=== PATIENT | female | born 1960 | race Caucasian/White ===

== ENCOUNTER 2018-07-26 06:47 | Day surgery (SDC) | payer OTHER ==
[~2018-07-26 06:47] MED LIST: CEFAZOLIN 2 Gram 2 GM/50 ML BAG IVPB ONE
[2018-07-26] MEDS ORDERED: DEXAMETHASONE 4 MG/ML 1ML VIAL IVP ONE ×2 (06:48)
[2018-07-26] MEDS ORDERED: MORPHINE SULFATE PF 10MG/10ML *10ML VIAL IV ONE (06:48)
[2018-07-26] MEDS ORDERED: MIDAZOLAM HCL 2MG/2ML VIAL IV ONE (06:48)
[2018-07-26] MEDS ORDERED: EPHEDRINE SULFATE 50 MG/ML ML IV ONE (06:48)
[2018-07-26] MEDS ORDERED: PROPOFOL 10 MG/ML VIAL IV ONE (06:48)
[2018-07-26] MEDS ORDERED: BUPIVACAINE 0.25% MPF 30ML VIAL IVP ONE (06:48)
[2018-07-26] MEDS ORDERED: DESFLURANE 240 ML BTL INH ONE (06:48)
[2018-07-26] MEDS ORDERED: BUPIVACAINE LIPOSOME/PF 133MG/10ML VIAL IV ONE (06:48)
[2018-07-26] MEDS ORDERED: GLYCOPYRROLATE 0.2 MG/ML ML IV ONE (06:48)
[2018-07-26] MEDS ORDERED: LIDOCAINE 2% MDV (20MG/ML) 20ML VIAL IV ONE (06:48)
[2018-07-26] MEDS ORDERED: FENTANYL PF 100MCG/2ML VIAL IV ONE (06:48)
[2018-07-26] MEDS ORDERED: ONDANSETRON HCL IV 4 MG/2 ML VIAL IVP ONE (06:48)
[2018-07-26] MEDS ORDERED: SCOPOLAMINE 1 PATCH TDSY TD ONE (08:32)
[2018-07-26] MEDS ORDERED: RINGERS SOLUTION,LACTATED 1,000 ML IV ONE ×2 (09:39→10:27)
[2018-07-26] MEDS ORDERED: METHYLPREDNISOLONE 40MG/VIAL IU ONE (10:40)
[2018-07-26] MEDS ORDERED: MORPHINE SULFATE 5 MG/ML VIAL IM ONE (10:40)
[2018-07-26] MEDS ORDERED: BUPIVACAINE 0.5% W/EPI MPF 30 ML VIAL SQ ONE (10:40)
--- NOTE | 2018-07-27 07:51 | Operative Note ---
DATE OF SURGERY: 07/26/2018 PREOPERATIVE DIAGNOSIS: Severe impingement, right shoulder. POSTOPERATIVE DIAGNOSES: 1. Small chronic tear of the rotator cuff. 2. Complex posterosuperior glenohumeral labral tear. 3. Profound right shoulder external impingement. 4. Arthrosis right distal clavicle. OPERATION: 1. Repair of a chronically torn rotator cuff tear. 2. Right shoulder arthroscopy with interarticular debridement. 3. Right shoulder open acromioplasty, CA ligament resection, subacromial bursectomy. 4. Right shoulder distal clavicle resection. STAFF SURGEON: Jairo Rice MD ANESTHESIA: General. PREPARATION: Chloraprep. INDIVIDUAL CONSIDERATIONS: None. PROCEDURE: The patient was taken to the operating room, placed supine on the operating room table. She had a successful induction with general anesthetic. She was then placed in a semi-seated beach chair position. Her right arm was prepped and draped in the usual fashion. Examination under anesthesia showed no instability. The patient had posterior portal identified for arthroscopy. Skin was infiltrated with 0.5% Marcaine with epinephrine prior. An 18-gauge spinal needle was easily placed in the joint, and the joint was inflated with normal saline. A stab wound was made, and a blunt- tipped trocar for the scope was easily placed in the joint. The joint was inflated with normal saline. An anterior accessory portal was then made just inferior to the intact long head of the biceps tendon in a retrograde fashion with a Wissinger yogi, and the joint was irrigated out. The glenohumeral joint was normal. She had a complex fraying of the superoposterior labrum, which was debrided with a shaver. Long head was intact. No loose bodies inferiorly. The undersurface of the rotator cuff of the supraspinatus looked contused but otherwise intact. The subscap tendon was normal. After irrigation, portals were closed with viviane. The patient had an anterior approach to the subacromial space and distal clavicle. Skin was again infiltrated with 0.5% Marcaine with epinephrine prior. Sharp dissection carried down through skin and subcutaneous tissue. Small veins were coagulated with a Bovie. An anterior deltoid interval was developed. Care was taken not to split the deltoid more than about 4 cm distal to the anterior tip of the acromion to prevent injury to the axillary nerve. Once in the subacromial space, there was a downsloping acromion and spurs at the AC joint. The deltoid was then taken subperiosteally off the anterior aspect of the acromion, over the top of the intact CA ligament, and off the anterior aspect of the degenerated distal clavicle. CA ligament was resected with a Bovie. Distal clavicle was resected with an oscillating saw taking slightly less than 1 cm. An anterior acromioplasty was performed taking mainly spur and downsloping area of about a centimeter tapering towards posteromedially to include the spurs at the AC joint. The undersurface was then smoothed off with a rasp. A very thick bursa was debrided. At the supraspinatus, it looked intact but contused. On further palpation, it was basically hanging on by a thread and it was just basically pulled back about 1 cm with about 1.5 cm area that was torn. I went ahead and debrided this out. Debrided the nonviable tendon to good bleeding tendon and then was able to reattach it through buried knot sutures, back to the tuberosity which had a decent amount of tendon remaining. I put the sutures through the bone and into the remaining tendon in a buried knot suture. This gave essentially an anatomic repair. After full range of motion, I checked for no further impingement. After irrigation, the deltoid was reattached to the remaining acromion with multiple interrupted #2 Vicryl going directly through the bony acromion. The periosteal cuff of the distal clavicle was closed with running #2 Vicryl. Anterior deltoid interval was closed with running 0 Vicryl. Subcu was closed in layers with 2-0 plus Vicryl and skin was closed with running 3-0 quill. The patient had an 18-gauge spinal needle placed into the subacromial space. It was injected with 10 mg of morphine, 40 mg of Depo-Medrol, and 10 mL of 0.5% Marcaine with epinephrine. A sterile bulky compressive dressing and sling were applied. The patient tolerated the procedure well. Needle and sponge counts were correct. Estimated blood loss was minimal. She was taken back to recovery in good condition. There were no complications. CINDY
== END 2018-07-26 12:05 | disposition home or self-care (01) ==
LOC: SUR 06:47
PROVIDERS: ATTEND Orthopaedic Surgery
DX: M75.101 Unspecified rotator cuff tear or rupture of right shoulder, not specified as traumatic (principal); S43.431A Superior glenoid labrum lesion of right shoulder, initial encounter; M19.011 Primary osteoarthritis, right shoulder; I10 Essential (primary) hypertension; E78.00 Pure hypercholesterolemia, unspecified; Z79.01 Long term (current) use of anticoagulants; Z86.73 Personal history of transient ischemic attack (TIA), and cerebral infarction without residual deficits
CPT/HCPCS: 29822; 23412; 23130; 01630; 64415; J2405; J3010; J0690; C9290; 76942; J1030; J7120